=== PATIENT | male | born 1975 | race African-American/Black ===

== ENCOUNTER 2017-06-18 18:56 | Emergency (ER) | payer SELFPAY ==
[~2017-06-18] VITALS: Ht 182.9 cm; Wt 77.0 kg
[2017-06-18] MEDS: HYDROCODONE/ACETAMINOPHEN 5/325MG TABLET PO ONE (21:59)
[2017-06-18 23:47] VITALS: BP 147/78
== END 2017-06-18 23:47 | disposition home or self-care (01) ==
LOC: ER 18:56
DX: S43.102A Unspecified dislocation of left acromioclavicular joint, initial encounter (principal); F12.10 Cannabis abuse, uncomplicated; X58.XXXA Exposure to other specified factors, initial encounter; Y93.89 Activity, other specified; Y92.89 Other specified places as the place of occurrence of the external cause; Y99.8 Other external cause status
CPT/HCPCS: 73030; 99284; Z7610; A4565